=== PATIENT | female | born 1935 | race Caucasian/White ===

== ENCOUNTER 2021-08-13 09:42 | Emergency (ER) | payer OTHER, BC ==
[2021-08-13] MEDS ORDERED: ACETAMINOPHEN 325 MG TABLET (FP) PO ONE (10:04)
[2021-08-13] MEDS ORDERED: DIPHTH,PERTUSS(ACELL),TET 0.5 ML DISP.SYRIN IM ONE ×2 (10:09→10:22)
[2021-08-13 10:12] VITALS: TEMP 98; BMI 31.8
[2021-08-13] MEDS ORDERED: ACETAMINOPHEN 325 MG TABLET (FP) ONE (10:22)
[2021-08-13] MEDS ORDERED: LIDOCAINE 5% TOPICAL PATCH TP ONE (11:50)
[2021-08-13] MEDS ORDERED: LIDOCAINE 5% TOPICAL PATCH ONE (12:00)
[2021-08-13 13:45] VITALS: BP 152/69; PULSE 76
== END 2021-08-13 13:45 | disposition home or self-care (01) ==
LOC: FER 09:42
PROC: 0JQ10ZZ Repair Face Subcutaneous Tissue and Fascia, Open Approach (ICD-10-PCS; principal; 2021-08-13)
PROC: 3E0234Z Introduction of Serum, Toxoid and Vaccine into Muscle, Percutaneous Approach (ICD-10-PCS; 2021-08-13)
DX: M54.50 Low back pain, unspecified (principal); S01.01XA Laceration without foreign body of scalp, initial encounter; S09.90XA Unspecified injury of head, initial encounter; W19.XXXA Unspecified fall, initial encounter; Y92.9 Unspecified place or not applicable
CPT/HCPCS: 12011-25; 70450-TC; 72100-TC-FY; 72125-TC; 73030-TC-RT-FY; 90471; 90715; 99284-25